=== PATIENT | male | born 1985 | race African-American/Black ===

== ENCOUNTER → 2017-02-18 | Outpatient (REF) ==
[~2017-02-18] MED LIST: NORCO 325 MG-51 TAB PO; ROCEPHIN V500 MG/VIA; VEE K
== END ==
LOC: WSOH 10:32
DX: Z02.89 Encounter for other administrative examinations (principal)

== ENCOUNTER → 2020-06-20 | Outpatient (REF) | LOC: WSOH 10:01 | DX: Z01.10 Encounter for examination of ears and hearing without abnormal findings (principal); F17.210 Nicotine dependence, cigarettes, uncomplicated ==